=== PATIENT | female | born 2000 | race Two or more races ===

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

== ENCOUNTER 2019-01-24 21:20 | Emergency (ER) | payer OTHER, MEDICAID ==
[2019-01-24] MEDS ORDERED: IBUPROFEN 600 MG TAB PO ONE (21:45)
[2019-01-24 22:21] VITALS: BP 119/63
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
== END 2019-01-24 22:55 | disposition home or self-care (01) ==
LOC: CED 21:20
DX: S70.01XA Contusion of right hip, initial encounter (principal); S16.1XXA Strain of muscle, fascia and tendon at neck level, initial encounter; V49.49XA Driver injured in collision with other motor vehicles in traffic accident, initial encounter; Y92.410 Unspecified street and highway as the place of occurrence of the external cause
CPT/HCPCS: 73502-PO; 99283-ER